=== PATIENT | male | born 1950 | race Caucasian/White ===

== ENCOUNTER 2023-11-07 09:12 | Outpatient (RCR) | payer OTHER, SELFPAY ==
[2023-10-16 07:11] LABS: Hematocrit 22.6 % (39.0-52.0); Hemoglobin 7.4 g/dL (13.0-18.0); Mean Corp Hgb Conc. 32.7 g/dL (33.0-37.0); Mean Corpuscular Hgb 32.3 pg (27.0-31.0); Mean Corpuscular Volume 98.7 fL (80.0-94.0); Mean Platelet Volume 11.3 fL (7.4-10.4); Nucleated Red Blood Cells % 0 % (-); Platelet Count 602 10^3/uL (130-400); Red Blood Cell Count 2.29 10^6/uL (4.70-6.10); Red Cell Dist. Width 25.5 % (11.5-14.5)
[2023-10-16 08:18] LABS: Absolute Neutrophils -Man Diff 16.3 10^3/uL (1.4-6.5); Atypical Lymphocytes 1 %; Band Neutrophils 9 % (0-3); Eosinophils 1 % (0-6); Lymphocytes 8 % (20-51); Metamyelocytes 4 % (-); Monocytes 7 % (2-9); Segmented Neutrophils 62 % (42-75)
[2023-10-16 08:19] LABS: Myelocytes 8 % (-)
[2023-10-16 08:23] LABS: Normal RBC Morphology No; Platelets Checked YES
[2023-10-16 08:25] LABS: Total Cells Counted 100
[2023-10-17 08:59] VITALS: BP 141/60
[2023-10-17 09:21] VITALS: BP 128/57
[2023-10-17 11:01] VITALS: BP 134/60
[2023-10-17 11:15] VITALS: BP 134/60
[2023-10-17 11:33] VITALS: BP 126/58
[2023-10-17 13:36] VITALS: BP 165/82
[2023-11-07 07:13] LABS: Hematocrit 24.8 % (39.0-52.0); Mean Corp Hgb Conc. 32.3 g/dL (33.0-37.0); Mean Corpuscular Hgb 31.7 pg (27.0-31.0); Mean Corpuscular Volume 98.4 fL (80.0-94.0); Mean Platelet Volume 11.2 fL (7.4-10.4); Nucleated Red Blood Cells % 0 % (-); Platelet Count 777 10^3/uL (130-400); Red Blood Cell Count 2.52 10^6/uL (4.70-6.10); Red Cell Dist. Width 24.4 % (11.5-14.5); White Blood Cell Count 31.1 10^3/uL (4.8-10.8)
[2023-11-07 07:55] LABS: Absolute Neutrophils -Man Diff 21.7 10^3/uL (1.4-6.5); Band Neutrophils 9 % (0-3); Blasts 1 % (-); Lymphocytes 4 % (20-51); Metamyelocytes 4 % (-); Monocytes 6 % (2-9); Myelocytes 15 % (-); Segmented Neutrophils 61 % (42-75)
[2023-11-07 07:56] LABS: Anisocytosis 1+; Macrocytosis 1+; Normal RBC Morphology No; Platelets Checked Yes
[2023-11-07 07:57] LABS: Hypochromasia 1+; Ovalocytes 1+; Polychromasia Slight
[2023-11-07 07:58] LABS: Total Cells Counted 100
[2023-11-07 09:49] VITALS: BP 113/63
[2023-11-07 10:07] VITALS: BP 123/66
[2023-11-07 12:11] VITALS: BP 121/59
== END 2023-11-14 23:59 | disposition home or self-care (01) ==
LOC: OID 09:12
PROVIDERS: Nurse Practitioner Adult Health; ATTENDING PHYSICIAN Internal Medicine Hematology & Oncology; FAMILY PHYSICIAN Family Medicine
DX: D47.3 Essential (hemorrhagic) thrombocythemia (principal); D75.81 Myelofibrosis; D50.9 Iron deficiency anemia, unspecified
CPT/HCPCS: 36415; 36430; 85025; 86850; 86900; 86901; 86920; P9016

== ENCOUNTER 2023-11-28 06:20 | Emergency (ER) | payer OTHER, SELFPAY ==
[2023-11-28] VITALS (13 sets, daily range): BP systolic 110–155; BP diastolic 64–98; BMI 25.4
[2023-11-28 07:10] LABS: Hematocrit 21.7 % (39.0-52.0); Hemoglobin 7.2 g/dL (13.0-18.0); Mean Corp Hgb Conc. 33.2 g/dL (33.0-37.0); Mean Corpuscular Hgb 32.1 pg (27.0-31.0); Mean Corpuscular Volume 96.9 fL (80.0-94.0); Mean Platelet Volume 11.3 fL (7.4-10.4); Nucleated Red Blood Cells % 0 % (-); Platelet Count 529 10^3/uL (130-400); Red Blood Cell Count 2.24 10^6/uL (4.70-6.10); White Blood Cell Count 18.6 10^3/uL (4.8-10.8)
[2023-11-28 07:26] LABS: ALT (SGPT) 30 U/L (0-50); AST (SGOT) 21 U/L (17-59); Alkaline Phosphatase 107 U/L (38-126); Blood Urea Nitrogen 34 mg/dl (9-20); Calcium 9.2 mg/dl (8.4-10.2); Carbon Dioxide 26 mmol/L (22-30); Chloride 105 mmol/L (98-107); Glucose 159 mg/dl (70-99); Potassium 4.7 mmol/L (3.5-5.1); Sodium 135 mmol/L (135-145); Total Bilirubin 0.5 mg/dl (0.2-1.3); Total Protein 7.4 g/dl (6.3-8.2); eGFR 45.21
--- NOTE | 2023-11-28 07:26 | ED.GENMED ---
History of Present Illness
General
Chief Complaint: Abnormal Lab Value
Source: patient and records
Exam Limitations: none
Time Seen by Provider: 11/28/23 06:43
Nursing documentation reviewed up to this point in time: agreed with
Travel History
Have you had any contact with someone who has COVID-19?: No
Do you have any symptoms of coronavirus? Fever > 100 degrees, chills, cough, shortness of breath, sore throat, loss of taste or smell, muscle aches, or headache?: No
History of Present Illness
History of Present Illness:
72-year-old male with a past medical history of hypertension, hyperlipidemia, diabetes, myelofibrosis and thrombocythemia who presents to the emergency department for evaluation of anemia. Patient has myelofibrosis and follows with
hematology/oncology through Dr. Diaz here locally but has been receiving most of his care through [facility] in [place]. He has been transfusion dependent for chronic anemia and has been getting transfusions about every 3 weeks. Fortunately
he is not very symptomatic from his anemia and he is quite active, plays tennis twice a week. He says that he had blood work drawn Saturday, Saturday, Saturday this week and his hemoglobin has been trending downwards; he is not due to have repeat
blood work until next week and there was concern that hemoglobin would drop below 7 if he were to wait until next week for transfusion and so he was referred to the emergency room for assessment. He has not had any shortness of breath, dizziness,
chest pain or exercise intolerance. He has not had any bleeding including blood in his stools, nosebleeding.
Past History
Past History
ED Past Medical History: Cancer, HTN, Hypercholesterolemia and NIDDM
ED Past Surgical History: None
Social History
Tobacco: Former smoker
Alcohol: None
Personal:
Living: with family
Review of Systems
Review of Systems
All Other Systems: ROS reviewed and negative except as documented in HPI and ROS
Constitutional: Denies fever, fatigue or chills
EENT: Denies sore throat or runny nose
Respiratory: Denies cough or trouble breathing
Cardiac: Denies chest pain, palpitations or syncope
ABD/GI: Denies abdominal pain, nausea, vomiting, bloody stools or black stools
: Denies flank pain
Musculoskeletal: Denies neck pain or back pain
Neurological: Denies dizzy or headache
Phy Exam
Physical Exam
Physical Exam:
General: Awake, alert, oriented x3; no acute distress
Head: Normocephalic, atraumatic
Eyes: Pale conjunctiva, pupils equal round reactive to light bilaterally
Throat: Airway intact, handling secretions
Neck: Trachea midline, supple without meningismus
Lungs: Clear to auscultation bilaterally, no wheezing, rales, rhonchi
Heart: Regular rate and rhythm, no murmurs, gallops, or rubs
Abd: Soft, non distended, nontender
Rectal: Patient declined
Neuro: No gross deficits
Skin: Slightly pale, no rash
Extremities: Warm and well-perfused
Scores
Heart Failure Risk
Heart Failure Risk Score: Not Applicable
Heart Score for Chest Pain Patients
STEMI patient?: Not applicable
Withdrawal Assessment of Alcohol
Withdrawal Assessment Completed?: Not applicable
Course
Orders/Labs/Results
Orders:
Orders
11/28/23 07:04
Type+Screen Urgent
Complete Blood Count/With Diff Urgent
Comprehensive Metabolic Panel Urgent
Manual Differential Urgent
11/28/23 07:25
* Blood Bank Products Urgent
Blood Bank Products: *Packed RBC Leuko(PRBC's)
Quantity: 2
Transfuse Today: Yes
Reason: Anemia
Abnormal Lab Results
11/28/23
07:04
WBC 18.6 H 10^3/uL
(4.8-10.8)
RBC 2.24 L 10^6/uL
(4.70-6.10)
Hgb 7.2 L g/dL
(13.0-18.0)
Hct 21.7 L %
(39.0-52.0)
MCV 96.9 H fL
(80.0-94.0)
MCH 32.1 H pg
(27.0-31.0)
RDW 25.0 H %
(11.5-14.5)
Plt Count 529 H 10^3/uL
(130-400)
MPV 11.3 H fL
(7.4-10.4)
11/28/23 07:04
Vital Signs
Initial and Last Documented VS:
Initial Vital Signs
Temp Pulse Resp BP Pulse Ox
36.9 C 69 16 155/98 98
11/28/23 06:25 11/28/23 06:25 11/28/23 06:25 11/28/23 06:25 11/28/23 06:25
Last Documented Vital Signs
Temp Pulse Resp BP Pulse Ox
36.9 C 69 16 155/98 98
11/28/23 06:25 11/28/23 06:25 11/28/23 06:25 11/28/23 06:25 11/28/23 06:25
MDM/Problems Addressed
Differential Diagnosis Includes:
Anemia
MDM/Problems Addressed:
72-year-old male with myelofibrosis and transfusion dependent chronic anemia currently receiving care through [facility] presents for anemia on outpatient labs. Fortunately he is asymptomatic. He is mildly hypertensive but has otherwise
normal vitals here. Exam as above. He denies any GI bleeding, declined rectal exam here. IV placed labs sent off including a CBC and a CMP�hemoglobin 7.2 this morning. Will transfuse 2 units of PRBCs and monitor here in the emergency room, plan
likely for discharge pending transfusion.
Chronic conditions affecting care:
Myelofibrosis
Acute Exacerbation and/or Progression of Chronic Illness:
Acutely hypertensive
Acute Exacerbation and/or Progression of Chronic Illness: HTN
*Pulse Oximetry
Patient hypoxic: no
*Critical Care Note
Total Time (30-74mins, 75-104mins- exclusive of procedures): Not Applicable
Data Reviewed
Review of Other/Old Records Reveals: Labs and Records
Source: patient and records
ED Attending Note
-
Portions of this chart may have been created with voice recognition software.� Occasional wrong word or��sound alike� substitutions may have occurred due to the inherent limitations of voice recognition software.
Discharge Plan
Departure
Discharge Problem:
Anemia
Instructions: Normocytic Normochromic Anemia (DC)
Prescriptions:
No Action
atorvastatin 40 MG tablet
40 mg PO DAILY
aspirin [Adult Aspirin Regimen] 81 MG tablet,delayed release (DR/EC)
81 mg PO DAILY
metformin 1,000 MG tablet
1,000 mg PO BID@0800,1700
Centrum Silver Men 1 EACH tablet
1 ea PO DAILY
amlodipine 2.5 mg Tablet
2.5 mg PO DAILY
omega 7-bef-fos-fish oil [Fish Oil] 1,000 mg (120 mg-180 mg) Capsule
1 cap PO DAILY
Referrals:
Reed Tam MD [Family Provider] - Call in 1-3 days for appt
Dwain Diaz MD [Active] - Call in 1-3 days for appt
Activity Restrictions/Additional Instructions:
Thank you for visiting the Emergency Department at [facility].
1. Please schedule a follow up appointment as directed. Call first thing tomorrow morning to make an appointment.
2. If indicated, please take your medications as instructed and indicated on discharge paperwork.
3. If any of your symptoms do not improve, or persist, or become more severe within 6-12 hours, please return to the emergency department for further care.
4. Please return to the emergency department if you develop a headache, neck pain/stiffness, fever greater than 100.4F, chest pain, shortness of breath, persistent nausea, vomiting, slurred speech, difficulty walking, numbness/tingling, weakness,
signs of infection or any other symptoms that are worrisome to you.
Please call [phone] if you have any questions.
Interventions
Interventions:
*Risk Screen - Suicide Last Done: 11/28/23 06:25
*General Assessment Last Done: 11/28/23 07:21
*Neglect/Abuse Screening Last Done: 11/28/23 06:25
ED- Fall Risk Assessment Last Done: 11/28/23 07:21
*ED COVID-19 Vaccine History Last Done: 11/28/23 06:25
[2023-11-28 08:03] LABS: Absolute Neutrophils -Man Diff 12.6 10^3/uL (1.4-6.5); Band Neutrophils 6 % (0-3); Eosinophils 6 % (0-6); Lymphocytes 11 % (20-51); Metamyelocytes 9 % (-); Monocytes 6 % (2-9); Segmented Neutrophils 62 % (42-75)
[2023-11-28 08:04] LABS: Other Cells 1; Platelets Checked Yes
[2023-11-28 08:09] LABS: Anisocytosis 2+; Hypochromasia Slight; Polychromasia Slight
[2023-11-28 08:10] LABS: Normal RBC Morphology No; Ovalocytes Slight; Poikilocytosis 1+; Total Cells Counted 100
--- NOTE | 2023-11-28 09:23 | EDRN ---
Patient receiving 1st unit of PRBC. Explained to patient signs and symptoms of a transfusion reaction. Verbalized understanding.
--- NOTE | 2023-11-28 09:40 | EDRN ---
Patient tolerating PRBC. Asymptomatic of a transfusion reaction.
--- NOTE | 2023-11-28 11:30 | EDRN ---
Patient tolerated 1st unit of PRBC. Asymptomatic of a transfusion reaction.
--- NOTE | 2023-11-28 11:45 | EDRN ---
Patient receiving 2nd unit of PRBC.
--- NOTE | 2023-11-28 13:30 | EDRN ---
Patient tolerated 2nd unit of PRBC. Asymptomatic of a transfusion reaction. Reviewed discharge instructions with patient. Verbalized understanding.
== END 2023-11-28 13:40 | disposition home or self-care (01) ==
LOC: EMR 06:20
PROVIDERS: EMERGENCY PHYSICIAN Emergency Medicine; FAMILY PHYSICIAN Family Medicine
DX: D64.9 Anemia, unspecified (principal); D75.81 Myelofibrosis; I10 Essential (primary) hypertension; Z87.891 Personal history of nicotine dependence
CPT/HCPCS: 99285; 36430; 80053; 85025; 86850; 86900; 86901; 86920; P9016

== ENCOUNTER 2023-12-26 10:08 | Outpatient (RCR) | payer OTHER, SELFPAY ==
[2023-12-25 07:36] LABS: Hematocrit 21.2 % (39.0-52.0); Hemoglobin 6.9 g/dL (13.0-18.0); Mean Corp Hgb Conc. 32.5 g/dL (33.0-37.0); Mean Corpuscular Hgb 31.4 pg (27.0-31.0); Mean Corpuscular Volume 96.4 fL (80.0-94.0); Mean Platelet Volume 11.4 fL (7.4-10.4); Nucleated Red Blood Cells % 0 % (-); Platelet Count 602 10^3/uL (130-400); Red Cell Dist. Width 24.6 % (11.5-14.5); White Blood Cell Count 19.9 10^3/uL (4.8-10.8)
[2023-12-25 08:37] LABS: Absolute Neutrophils -Man Diff 14.9 10^3/uL (1.4-6.5); Band Neutrophils 14 % (0-3); Eosinophils 1 % (0-6); Lymphocytes 4 % (20-51); Monocytes 5 % (2-9); Segmented Neutrophils 61 % (42-75)
[2023-12-25 08:38] LABS: Metamyelocytes 7 % (-); Myelocytes 8 % (-); Normal RBC Morphology No; Platelets Checked Yes
[2023-12-25 08:39] LABS: Anisocytosis 2+
[2023-12-25 08:40] LABS: Macrocytosis 1+; Microcytosis 1+
[2023-12-25 08:41] LABS: Ovalocytes 1+; Polychromasia 1+
[2023-12-25 08:42] LABS: Acanthocytes 1+; Total Cells Counted 100
[2023-12-26 10:59] VITALS: BP 137/74
[2023-12-26 11:16] VITALS: BP 121/58
[2023-12-26 12:52] VITALS: BP 116/62
[2023-12-26 13:00] VITALS: BP 116/62
[2023-12-26 13:17] VITALS: BP 116/64
[2023-12-26 15:01] VITALS: BP 130/74
== END 2024-01-14 11:28 | disposition home or self-care (01) ==
LOC: OID 10:08
PROVIDERS: ATTENDING PHYSICIAN Internal Medicine Hematology & Oncology; FAMILY PHYSICIAN Family Medicine
DX: D47.3 Essential (hemorrhagic) thrombocythemia (principal); D75.81 Myelofibrosis; D50.9 Iron deficiency anemia, unspecified
CPT/HCPCS: 36415; 36430; 85025; 86850; 86900; 86901; 86920; P9016

== ENCOUNTER 2024-01-16 09:16 | Outpatient (RCR) | payer OTHER, SELFPAY ==
[2024-01-15 07:35] LABS: Hematocrit 22.9 % (39.0-52.0); Hemoglobin 7.4 g/dL (13.0-18.0); Mean Corp Hgb Conc. 32.3 g/dL (33.0-37.0); Mean Corpuscular Hgb 31.4 pg (27.0-31.0); Mean Platelet Volume 11.5 fL (7.4-10.4); Nucleated Red Blood Cells % 0 % (-); Platelet Count 538 10^3/uL (130-400); Red Blood Cell Count 2.36 10^6/uL (4.70-6.10); Red Cell Dist. Width 23.2 % (11.5-14.5); White Blood Cell Count 19.6 10^3/uL (4.8-10.8)
[2024-01-15 11:24] LABS: Absolute Neutrophils -Man Diff 14.7 10^3/uL (1.4-6.5); Band Neutrophils 5 % (0-3); Lymphocytes 8 % (20-51); Monocytes 5 % (2-9); Segmented Neutrophils 70 % (42-75)
[2024-01-15 11:25] LABS: Blasts 3 % (-); Eosinophils 1 % (0-6); Metamyelocytes 2 % (-); Myelocytes 6 % (-)
[2024-01-15 11:26] LABS: Anisocytosis 2+; Macrocytosis 1+; Normal RBC Morphology No; Platelets Checked Yes; Polychromasia 1+
[2024-01-15 11:27] LABS: Acanthocytes 1+; Ovalocytes 1+; Total Cells Counted 100
[2024-01-16 09:51] VITALS: BP 111/53
[2024-01-16 10:10] VITALS: BP 108/46
[2024-01-16 12:05] VITALS: BP 119/57
[2024-01-16 12:27] VITALS: BP 119/57
[2024-01-16 12:44] VITALS: BP 138/66
[2024-01-16 14:31] VITALS: BP 144/69
== END 2024-02-13 15:39 | disposition home or self-care (01) ==
LOC: OID 09:16
PROVIDERS: ATTENDING PHYSICIAN Internal Medicine Hematology & Oncology; FAMILY PHYSICIAN Family Medicine
DX: D47.3 Essential (hemorrhagic) thrombocythemia (principal); D75.81 Myelofibrosis; D50.9 Iron deficiency anemia, unspecified
CPT/HCPCS: 36415; 36430; 85025; 86850; 86900; 86901; 86920; P9016

== ENCOUNTER 2024-03-09 08:23 | Outpatient (RCR) | payer OTHER, SELFPAY ==
[2024-02-19 07:36] LABS: Hematocrit 18.4 % (39.0-52.0); Hemoglobin 6.1 g/dL (13.0-18.0); Mean Corp Hgb Conc. 33.2 g/dL (33.0-37.0); Mean Corpuscular Hgb 30.8 pg (27.0-31.0); Mean Corpuscular Volume 92.9 fL (80.0-94.0); Mean Platelet Volume 11.5 fL (7.4-10.4); Platelet Count 519 10^3/uL (130-400); Red Blood Cell Count 1.98 10^6/uL (4.70-6.10); Red Cell Dist. Width 22.5 % (11.5-14.5); White Blood Cell Count 23.7 10^3/uL (4.8-10.8)
[2024-02-19 08:54] LABS: Anisocytosis 2+; Band Neutrophils 17 % (0-3); Lymphocytes 7 % (20-51); Metamyelocytes 11 % (-); Monocytes 2 % (2-9); Myelocytes 3 % (-); Normal RBC Morphology No; Platelets Checked Yes; Segmented Neutrophils 59 % (42-75)
[2024-02-19 08:55] LABS: Ovalocytes FEW; Spherocytes 1+; Total Cells Counted 100
[2024-02-20 09:04] VITALS: BP 121/58
[2024-02-20 09:31] VITALS: BP 124/57
[2024-02-20 11:21] VITALS: BP 127/58
[2024-02-20 11:35] VITALS: BP 127/58
[2024-02-20 11:53] VITALS: BP 128/58
[2024-02-20 13:56] VITALS: BP 128/66
[2024-03-09 08:40] VITALS: BP 125/51
[2024-03-09 09:11] VITALS: BP 125/51
[2024-03-09 09:29] VITALS: BP 104/46
[2024-03-09 11:10] VITALS: BP 137/63
== END 2024-03-15 23:59 | disposition home or self-care (01) ==
LOC: OID 08:23
PROVIDERS: ATTENDING PHYSICIAN Internal Medicine Hematology & Oncology; FAMILY PHYSICIAN Family Medicine
DX: D47.3 Essential (hemorrhagic) thrombocythemia (principal); D75.81 Myelofibrosis; D50.9 Iron deficiency anemia, unspecified
CPT/HCPCS: 36415; 36430; 85025; 86850; 86900; 86901; 86920; P9016

== ENCOUNTER 2024-04-02 09:29 | Emergency (ER) | payer OTHER, SELFPAY ==
[2024-04-02 09:35] VITALS: BP 142/65
--- NOTE | 2024-04-02 09:48 | ED.GENMED ---
History of Present Illness
General
Chief Complaint: Abnormal Lab Value
Source: patient and records
Exam Limitations: none
Time Seen by Provider: 04/02/24 09:38
Nursing documentation reviewed up to this point in time: agreed with
History of Present Illness
History of Present Illness:
73-year-old male presents emergency department due to anemia. He got his blood drawn recently and it was 7.3. He denies any symptoms. He states he does not ever have symptoms from his anemia. He denies any bleeding. He states he did not want to
wait for the OID.
Past History
Past History
ED Past Medical History: Cancer, HTN, Hypercholesterolemia and NIDDM
ED Past Surgical History: Orthopedic (Right knee arthroscopy) and Other (Hernia repair 1964)
Social History
Tobacco: Former smoker
Alcohol: None
Personal:
Living: with family
Review of Systems
Review of Systems
Allergies reviewed?: Yes
All Other Systems: Not applicable
Constitutional: Reports no symptoms
EENT: Reports no symptoms
Respiratory: Reports no symptoms
Cardiac: Reports no symptoms
ABD/GI: Reports no symptoms
: Reports no symptoms
Musculoskeletal: Reports no symptoms
Skin: Reports no symptoms
Neurological: Reports no symptoms
Endocrine: Reports no symptoms
Hematologic/Lymphatic: Reports no symptoms
Psychiatric: Reports no symptoms
Phy Exam
Physical Exam
Physical Exam:
Physical Exam
General: no apparent distress, not acutely ill
Neck: supple. no meningeal signs. normal posterior pharynx
Heart: s1/s2 regular rate and rhythm, no murmur. equal radial
pulses.
HEENT: Pupils equal round reactive to light, EOMI
Lungs: no acute respiratory distress. clear bilaterally
Abdomen: normal bowel sounds. not tender. no CVAT
Neuro: alert and oriented. no focal neurological deficits cranial nerves II through XII intact
Skin: no rash
Psychiatric: well kept. interactive and cooperative
Extremities: no edema. no calf tenderness. negative homans. good distal pulses
Course
Vital Signs
Initial and Last Documented VS:
Initial Vital Signs
Temp Pulse Resp BP Pulse Ox
98.9 F 71 18 142/65 100
04/02/24 09:35 04/02/24 09:35 04/02/24 09:35 04/02/24 09:35 04/02/24 09:35
Last Documented Vital Signs
Temp Pulse Resp BP Pulse Ox
98.9 F 71 18 142/65 100
04/02/24 09:35 04/02/24 09:35 04/02/24 09:35 04/02/24 09:35 04/02/24 09:35
MDM/Problems Addressed
Differential Diagnosis Includes:
Fibrosis, anemia
MDM/Problems Addressed:
73-year-old male with anemia. Asymptomatic. No indication for emergent transfusion in ED. Stable for discharge and will go to outpatient infusion today for nonemergent transfusion.
Chronic conditions affecting care: Other (Myelofibrosis)
Acute Exacerbation and/or Progression of Chronic Illness: Other (Myelofibrosis)
*Pulse Oximetry
Patient hypoxic: no
*Critical Care Note
Total Time (30-74mins, 75-104mins- exclusive of procedures): Not Applicable
Data Reviewed
Review of Other/Old Records Reveals: Labs
Source: records (Prior hemoglobin 6.7 on 03/21/2024)
Patient Management
Social determinants of health affecting care: Living situation
Escalation/DeEscalation of care consider admission/obs:
Admit not indicated
ED Attending Note
-
Portions of this chart may have been created with voice recognition software.� Occasional wrong word or��sound alike� substitutions may have occurred due to the inherent limitations of voice recognition software.
Discharge Plan
Departure
Patient Disposition: Home (Routine Discharge)
Date of Disposition: 04/02/24
Time of Disposition: 09:49
Patient with high blood pressure during this ER visit?: Yes
Condition: Good
Discharge Problem:
Anemia
Instructions: BLOOD PRESSURE
Prescriptions:
No Action
atorvastatin 40 MG tablet
40 mg PO DAILY
amlodipine 2.5 mg Tablet
2.5 mg PO DAILY
Centrum Silver Tablet
1 tab PO DAILY
Fish Oil 500 mg Capsule
500 mg PO DAILY
metformin 500 mg Tablet
500 mg PO BID
aspirin 81 mg Tablet,Delayed Release (Dr/Ec)
81 mg PO DAILY
Activity Restrictions/Additional Instructions:
Go to Outpatient infusion department for further care today.
Interventions
Interventions:
*Risk Screen - Suicide Last Done: 04/02/24 09:35
*General Assessment Last Done: 04/02/24 09:35
*Neglect/Abuse Screening Last Done: 04/02/24 09:35
ED- Fall Risk Assessment Last Done: 04/02/24 10:00
*ED COVID-19 Vaccine History Last Done: 04/02/24 10:00
*Nursing Disposition Last Done: 04/02/24 10:00
Discharge Date and Time
Print Language: CAMEROONIAN
[2024-04-02 09:51] VITALS: BMI 23.2
== END 2024-04-02 10:01 | disposition home or self-care (01) ==
LOC: EMR 09:29
PROVIDERS: EMERGENCY PHYSICIAN Emergency Medicine; FAMILY PHYSICIAN Family Medicine
DX: D64.9 Anemia, unspecified (principal); I10 Essential (primary) hypertension; E78.00 Pure hypercholesterolemia, unspecified; E11.9 Type 2 diabetes mellitus without complications; D75.81 Myelofibrosis; Z87.891 Personal history of nicotine dependence
CPT/HCPCS: 99282

== ENCOUNTER 2024-04-02 10:06 | Outpatient (RCR) | payer OTHER, SELFPAY ==
[2024-03-21 08:23] LABS: % Basophils 1.4 % (0-2); % Eosinophils 1.7 % (0-6); % Immature Granulocytes 19.7 % (0-0.5); % Lymphocytes 10.3 % (20.5-51.1); % Monocytes 7.4 % (1.7-9.3); % Neutrophils 59.5 % (42.2-75.2); Absolute Basophils 0.3 10^3/uL (0-0.2); Absolute Eosinophils 0.4 10^3/uL (0-0.7); Absolute Immature Granulocytes 4.6 10^3/uL (0-0.05); Absolute Lymphocytes 2.4 10^3/uL (1.2-3.4); Absolute Monocytes 1.8 10^3/uL (0.1-0.6); Hematocrit 19.7 % (39.0-52.0); Hemoglobin 6.7 g/dL (13.0-18.0); Mean Corpuscular Hgb 31.6 pg (27.0-31.0); Mean Corpuscular Volume 92.9 fL (80.0-94.0); Mean Platelet Volume 11.8 fL (7.4-10.4); Nucleated Red Blood Cells % 0 % (-); Platelet Count 493 10^3/uL (130-400); Red Blood Cell Count 2.12 10^6/uL (4.70-6.10); Red Cell Dist. Width 20.3 % (11.5-14.5); White Blood Cell Count 23.5 10^3/uL (4.8-10.8)
[2024-03-21 09:04] LABS: Absolute Neutrophils -Man Diff 18.5 10^3/uL (1.4-6.5); Anisocytosis 2+; Band Neutrophils 16 % (0-3); Eosinophils 1 % (0-6); Hypochromasia 1+; Lymphocytes 8 % (20-51); Metamyelocytes 4 % (-); Monocytes 3 % (2-9); Myelocytes 5 % (-); Normal RBC Morphology No; Platelets Checked Yes; Polychromasia 1+; Segmented Neutrophils 63 % (42-75)
[2024-03-21 09:05] LABS: Acanthocytes FEW; Ovalocytes 1+; Total Cells Counted 100
[2024-03-23 09:07] VITALS: BP 129/60
[2024-03-23 09:25] VITALS: BP 113/58
[2024-03-23 11:08] VITALS: BP 132/58
[2024-03-23 11:11] VITALS: BP 132/58
[2024-03-23 11:28] VITALS: BP 121/59
[2024-03-23 13:24] VITALS: BP 122/63
[2024-04-02] VITALS (8 sets, daily range): BP systolic 111–153; BP diastolic 62–86
--- NOTE | 2024-04-02 15:49 | W.PN.UPDATE ---
Update Note
- Progress Note Update
04/02/24 1425
Pt here in OID for 2 units of PRBC. Patient requesting information on low potassium diet as he was advised to follow a low potassium diet per nephrology and recently found ensure he has been drinking daily has over 370mg potassium. Concerned about
weight loss so has been supplementing. Provided educational materials/charts to help with food prep and shopping for low potassium diet and some suggestions for protein shakes including clear ensure. He will read over the materials. A nutrition
evaluation has been placed as well and nutrition will contact him to schedule an appt. He has my contact information and knows to call for any questions or concerns going forward. He will follow up with nephrology next week. All questions
answered to his satisfaction and he thanked me for the info.
== END 2024-04-15 23:59 | disposition home or self-care (01) ==
LOC: OID 10:06
PROVIDERS: ATTENDING PHYSICIAN Internal Medicine Hematology & Oncology; FAMILY PHYSICIAN Family Medicine
DX: D47.3 Essential (hemorrhagic) thrombocythemia (principal); D75.81 Myelofibrosis; D50.9 Iron deficiency anemia, unspecified
CPT/HCPCS: 36415; 36430; 85025; 86850; 86900; 86901; 86920; P9016

== ENCOUNTER → 2024-04-16 10:04 | Outpatient (REF) | payer OTHER, SELFPAY | LOC: HWRAD 10:04 | PROVIDERS: ATTENDING PHYSICIAN Student in an Organized Health Care Education/Training Program; FAMILY PHYSICIAN Family Medicine | DX: N17.9 Acute kidney failure, unspecified (principal) | CPT/HCPCS: 76770 ==

== ENCOUNTER 2024-05-07 07:44 | Outpatient (RCR) | payer OTHER, SELFPAY ==
[2024-04-22 08:28] LABS: Mean Corp Hgb Conc. 33.3 g/dL (33.0-37.0); Mean Corpuscular Hgb 30.7 pg (27.0-31.0); Mean Corpuscular Volume 92.1 fL (80.0-94.0); Mean Platelet Volume 11.6 fL (7.4-10.4); Platelet Count 433 10^3/uL (130-400); Red Blood Cell Count 2.28 10^6/uL (4.70-6.10); Red Cell Dist. Width 17.7 % (11.5-14.5); White Blood Cell Count 21.4 10^3/uL (4.8-10.8)
[2024-04-22 10:18] LABS: Absolute Neutrophils -Man Diff 13.9 10^3/uL (1.4-6.5); Anisocytosis 1+; Atypical Lymphocytes 1 %; Band Neutrophils 21 % (0-3); Hypochromasia 1+; Lymphocytes 10 % (20-51); Metamyelocytes 14 % (-); Monocytes 4 % (2-9); Myelocytes 6 % (-); Normal RBC Morphology No; Platelets Checked Yes; Polychromasia 1+; Segmented Neutrophils 44 % (42-75)
[2024-04-22 10:19] LABS: Ovalocytes 1+; Total Cells Counted 100
[2024-04-23] VITALS (7 sets, daily range): BP systolic 100–133; BP diastolic 49–69
[2024-05-07] VITALS (7 sets, daily range): BP systolic 97–115; BP diastolic 45–58
== END 2024-05-16 23:59 | disposition home or self-care (01) ==
LOC: OID 07:44
PROVIDERS: ATTENDING PHYSICIAN Internal Medicine Hematology & Oncology; FAMILY PHYSICIAN Family Medicine
DX: D47.3 Essential (hemorrhagic) thrombocythemia (principal); D75.81 Myelofibrosis; D50.9 Iron deficiency anemia, unspecified; R16.1 Splenomegaly, not elsewhere classified
CPT/HCPCS: 36415; 36430; 85025; 86850; 86900; 86901; 86920; P9016

== ENCOUNTER → 2024-05-26 06:18 | Outpatient (REF) | payer OTHER, SELFPAY | LOC: REG 06:18 | PROVIDERS: ATTENDING PHYSICIAN Internal Medicine Hematology & Oncology; FAMILY PHYSICIAN Family Medicine | DX: D47.3 Essential (hemorrhagic) thrombocythemia (principal); D50.9 Iron deficiency anemia, unspecified; D75.81 Myelofibrosis; R16.1 Splenomegaly, not elsewhere classified | CPT/HCPCS: 36415; 85025; 86850; 86900; 86901; 86920 ==

== ENCOUNTER 2024-05-28 09:12 | Outpatient (RCR) | payer OTHER, SELFPAY ==
[2024-05-26 07:33] LABS: Hematocrit 24.1 % (39.0-52.0); Hemoglobin 7.9 g/dL (13.0-18.0); Mean Corp Hgb Conc. 32.8 g/dL (33.0-37.0); Mean Corpuscular Hgb 29.9 pg (27.0-31.0); Mean Corpuscular Volume 91.3 fL (80.0-94.0); Mean Platelet Volume 11.6 fL (7.4-10.4); Platelet Count 440 10^3/uL (130-400); Red Blood Cell Count 2.64 10^6/uL (4.70-6.10); Red Cell Dist. Width 16.2 % (11.5-14.5); White Blood Cell Count 25.1 10^3/uL (4.8-10.8)
[2024-05-26 09:09] LABS: Absolute Neutrophils -Man Diff 19.5 10^3/uL (1.4-6.5); Band Neutrophils 11 % (0-3); Lymphocytes 6 % (20-51); Monocytes 9 % (2-9); Segmented Neutrophils 67 % (42-75)
[2024-05-26 09:10] LABS: Eosinophils 2 % (0-6); Metamyelocytes 1 % (-); Myelocytes 4 % (-); Normal RBC Morphology Yes; Platelets Checked Yes; Total Cells Counted 100
[2024-05-28] VITALS (7 sets, daily range): BP systolic 107–154; BP diastolic 57–78
== END 2024-06-15 23:59 | disposition home or self-care (01) ==
LOC: OID 09:12
PROVIDERS: ATTENDING PHYSICIAN Internal Medicine Hematology & Oncology; FAMILY PHYSICIAN Family Medicine
DX: D47.3 Essential (hemorrhagic) thrombocythemia (principal); D75.81 Myelofibrosis; D50.9 Iron deficiency anemia, unspecified
CPT/HCPCS: 36415; 36430; 85025; 86850; 86900; 86901; 86920; P9016

== ENCOUNTER 2024-07-09 08:28 | Outpatient (RCR) | payer OTHER, SELFPAY ==
[2024-06-20 08:27] LABS: Mean Corp Hgb Conc. 33.3 g/dL (33.0-37.0); Mean Corpuscular Hgb 29.3 pg (27.0-31.0); Mean Corpuscular Volume 87.9 fL (80.0-94.0); Mean Platelet Volume 11.8 fL (7.4-10.4); Platelet Count 354 10^3/uL (130-400); Red Blood Cell Count 2.39 10^6/uL (4.70-6.10); Red Cell Dist. Width 15.7 % (11.5-14.5); White Blood Cell Count 22.3 10^3/uL (4.8-10.8)
[2024-06-20 10:32] LABS: Absolute Neutrophils -Man Diff 15.1 10^3/uL (1.4-6.5); Band Neutrophils 13 % (0-3); Eosinophils 1 % (0-6); Lymphocytes 15 % (20-51); Monocytes 2 % (2-9); Segmented Neutrophils 55 % (42-75)
[2024-06-20 10:33] LABS: Atypical Lymphocytes 1 %; Metamyelocytes 4 % (-); Myelocytes 8 % (-)
[2024-06-20 10:34] LABS: Platelets Checked YES
[2024-06-20 10:35] LABS: Normal RBC Morphology Yes
[2024-06-20 10:36] LABS: Total Cells Counted 100
[2024-06-22 10:32] VITALS: BP 110/50
[2024-06-22 10:58] VITALS: BP 105/49
[2024-06-22 12:26] VITALS: BP 120/47
[2024-06-22 12:48] VITALS: BP 118/63
[2024-06-22 14:59] VITALS: BP 150/70
[2024-07-09 08:53] VITALS: BP 138/71
[2024-07-09 09:13] VITALS: BP 134/65
[2024-07-09 10:41] VITALS: BP 131/63
[2024-07-09 10:43] VITALS: BP 131/63
[2024-07-09 11:00] VITALS: BP 153/64
[2024-07-09 12:56] VITALS: BP 142/64
== END 2024-07-15 15:06 | disposition home or self-care (01) ==
LOC: OID 08:28
PROVIDERS: ATTENDING PHYSICIAN Internal Medicine Hematology & Oncology; FAMILY PHYSICIAN Family Medicine
DX: D47.3 Essential (hemorrhagic) thrombocythemia (principal); D75.81 Myelofibrosis; D50.9 Iron deficiency anemia, unspecified
CPT/HCPCS: 36415; 36430; 85025; 86850; 86900; 86901; 86920; P9016

== ENCOUNTER 2024-08-10 07:49 | Outpatient (RCR) | payer OTHER, SELFPAY ==
[2024-07-18 08:08] LABS: Hematocrit 22.4 % (39.0-52.0); Hemoglobin 7.4 g/dL (13.0-18.0); Mean Corpuscular Hgb 28.8 pg (27.0-31.0); Mean Corpuscular Volume 87.2 fL (80.0-94.0); Mean Platelet Volume 11.8 fL (7.4-10.4); Platelet Count 303 10^3/uL (130-400); Red Blood Cell Count 2.57 10^6/uL (4.70-6.10); Red Cell Dist. Width 15.8 % (11.5-14.5); White Blood Cell Count 23.9 10^3/uL (4.8-10.8)
[2024-07-18 08:39] LABS: Absolute Neutrophils -Man Diff 18.1 10^3/uL (1.4-6.5); Anisocytosis 1+; Band Neutrophils 9 % (0-3); Eosinophils 1 % (0-6); Hypochromasia 1+; Lymphocytes 9 % (20-51); Metamyelocytes 2 % (-); Monocytes 3 % (2-9); Myelocytes 9 % (-); Normal RBC Morphology No; Ovalocytes Slight; Platelets Checked Yes; Segmented Neutrophils 67 % (42-75); Total Cells Counted 100
[2024-07-20] VITALS (7 sets, daily range): BP systolic 110–126; BP diastolic 60–63
[2024-08-08 07:43] LABS: Hematocrit 21.2 % (39.0-52.0); Hemoglobin 7.1 g/dL (13.0-18.0); Mean Corp Hgb Conc. 33.5 g/dL (33.0-37.0); Mean Corpuscular Hgb 28.6 pg (27.0-31.0); Mean Corpuscular Volume 85.5 fL (80.0-94.0); Mean Platelet Volume 11.3 fL (7.4-10.4); Nucleated Red Blood Cells % 0 % (-); Platelet Count 323 10^3/uL (130-400); Red Blood Cell Count 2.48 10^6/uL (4.70-6.10); Red Cell Dist. Width 16.3 % (11.5-14.5)
[2024-08-08 08:56] LABS: Band Neutrophils 9 % (0-3); Eosinophils 1 % (0-6); Lymphocytes 6 % (20-51); Metamyelocytes 5 % (-); Monocytes 5 % (2-9); Myelocytes 15 % (-)
[2024-08-08 08:57] LABS: Absolute Neutrophils -Man Diff 17.6 10^3/uL (1.4-6.5); Segmented Neutrophils 59 % (42-75)
[2024-08-08 08:59] LABS: Anisocytosis Slight; Hypochromasia Slight; Normal RBC Morphology No; Ovalocytes Slight; Platelets Checked Yes; Total Cells Counted 100
[2024-08-10 08:22] VITALS: BP 124/52
[2024-08-10 08:44] VITALS: BP 114/52
[2024-08-10 10:07] VITALS: BP 108/43
[2024-08-10 10:19] VITALS: BP 108/43
[2024-08-10 10:36] VITALS: BP 105/48
[2024-08-10 12:09] VITALS: BP 135/63
== END 2024-08-11 09:57 | disposition home or self-care (01) ==
LOC: OID 07:49
PROVIDERS: ATTENDING PHYSICIAN Internal Medicine Hematology & Oncology; FAMILY PHYSICIAN Family Medicine
DX: D47.3 Essential (hemorrhagic) thrombocythemia (principal); D75.81 Myelofibrosis; D50.9 Iron deficiency anemia, unspecified
CPT/HCPCS: 36415; 36430; 85025; 86850; 86900; 86901; 86920; P9016

== ENCOUNTER 2024-09-14 07:42 | Outpatient (RCR) | payer OTHER, SELFPAY ==
[2024-08-27] VITALS (7 sets, daily range): BP systolic 115–142; BP diastolic 55–64
[2024-09-14] VITALS (7 sets, daily range): BP systolic 108–139; BP diastolic 55–68
[2024-09-14] MEDS: TYLENOL 650 MG PO (08:15)
== END 2024-09-15 14:43 | disposition home or self-care (01) ==
LOC: OID 07:42
PROVIDERS: ATTENDING PHYSICIAN Internal Medicine Hematology & Oncology
DX: D47.3 Essential (hemorrhagic) thrombocythemia (principal); D50.9 Iron deficiency anemia, unspecified; D75.81 Myelofibrosis; R16.1 Splenomegaly, not elsewhere classified
CPT/HCPCS: 36415; 36430; 86850; 86900; 86901; 86920; P9016

== ENCOUNTER 2024-10-01 07:43 | Outpatient (RCR) | payer OTHER, SELFPAY ==
[2024-10-01 08:19] VITALS: BP 141/66
[2024-10-01 08:37] VITALS: BP 131/58
[2024-10-01 10:31] VITALS: BP 130/72
[2024-10-01 10:38] VITALS: BP 130/72
[2024-10-01 10:55] VITALS: BP 123/64
[2024-10-01 13:01] VITALS: BP 149/73
== END 2024-10-16 23:59 | disposition home or self-care (01) ==
LOC: OID 07:43
PROVIDERS: ATTENDING PHYSICIAN Internal Medicine Hematology & Oncology
DX: D47.3 Essential (hemorrhagic) thrombocythemia (principal); D50.9 Iron deficiency anemia, unspecified; D75.81 Myelofibrosis; R16.1 Splenomegaly, not elsewhere classified
CPT/HCPCS: 36415; 36430; 86850; 86900; 86901; 86920; P9016

== ENCOUNTER 2024-11-05 07:46 | Outpatient (RCR) | payer OTHER, SELFPAY ==
[2024-10-22] VITALS (7 sets, daily range): BP systolic 120–168; BP diastolic 62–86
[2024-11-04 09:01] LABS: Absolute Neutrophils -Man Diff 33.8 10^3/uL (1.4-6.5); Band Neutrophils 19 % (0-3); Hematocrit 23.7 % (39.0-52.0); Lymphocytes 8 % (20-51); Mean Corp Hgb Conc. 33.8 g/dL (33.0-37.0); Mean Corpuscular Hgb 27.8 pg (27.0-31.0); Mean Corpuscular Volume 82.3 fL (80.0-94.0); Mean Platelet Volume 10.8 fL (7.4-10.4); Metamyelocytes 12 % (-); Monocytes 6 % (2-9); Myelocytes 5 % (-); Platelet Count 259 10^3/uL (130-400); Platelets Checked Yes; Red Blood Cell Count 2.88 10^6/uL (4.70-6.10); Red Cell Dist. Width 19.6 % (11.5-14.5); Segmented Neutrophils 50 % (42-75)
[2024-11-04 09:02] LABS: Anisocytosis 1+; Hypochromasia 1+; Normal RBC Morphology No; Ovalocytes 1+; Polychromasia 1+; Total Cells Counted 100
[2024-11-05 08:08] VITALS: BP 131/76
[2024-11-05 08:25] VITALS: BP 130/68
[2024-11-05 09:59] VITALS: BP 132/62
[2024-11-05 10:11] VITALS: BP 132/62
[2024-11-05 10:27] VITALS: BP 141/65
[2024-11-05 12:51] VITALS: BP 162/80
== END 2024-11-13 23:59 | disposition home or self-care (01) ==
LOC: OID 07:46
PROVIDERS: ATTENDING PHYSICIAN Internal Medicine Hematology & Oncology
DX: D47.3 Essential (hemorrhagic) thrombocythemia (principal); D50.9 Iron deficiency anemia, unspecified; D75.81 Myelofibrosis; R16.1 Splenomegaly, not elsewhere classified
CPT/HCPCS: 36415; 36430; 85025; 86850; 86900; 86901; 86920; P9016

== ENCOUNTER 2024-12-10 08:27 | Outpatient (RCR) | payer OTHER, SELFPAY ==
[2024-11-26 08:36] LABS: Hematocrit 17.8 % (39.0-52.0); Hemoglobin 5.8 g/dL (13.0-18.0); Mean Corp Hgb Conc. 32.6 g/dL (33.0-37.0); Mean Corpuscular Hgb 27.2 pg (27.0-31.0); Mean Corpuscular Volume 83.6 fL (80.0-94.0); Mean Platelet Volume 11.8 fL (7.4-10.4); Platelet Count 135 10^3/uL (130-400); Red Blood Cell Count 2.13 10^6/uL (4.70-6.10); Red Cell Dist. Width 19.2 % (11.5-14.5); White Blood Cell Count 65.2 10^3/uL (4.8-10.8)
[2024-11-26 10:35] LABS: Absolute Neutrophils -Man Diff 50.2 10^3/uL (1.4-6.5); Band Neutrophils 23 % (0-3); Segmented Neutrophils 54 % (42-75)
[2024-11-26 10:36] LABS: Anisocytosis 1+; Atypical Lymphocytes 1 %; Hypochromasia 1+; Lymphocytes 6 % (20-51); Metamyelocytes 8 % (-); Monocytes 4 % (2-9); Myelocytes 3 % (-); Normal RBC Morphology No; Ovalocytes 1+; Platelets Checked Yes; Polychromasia 1+; Promyelocytes 1 % (-); Total Cells Counted 100
[2024-11-26 11:50] VITALS: BP 139/70
[2024-11-26 12:08] VITALS: BP 142/72
[2024-11-26 13:39] VITALS: BP 128/65
[2024-11-26 13:48] VITALS: BP 128/65
[2024-11-26 14:12] VITALS: BP 128/66
[2024-11-26 16:29] VITALS: BP 157/80
[2024-12-10] VITALS (7 sets, daily range): BP systolic 110–159; BP diastolic 54–83
== END 2024-12-14 23:59 | disposition home or self-care (01) ==
LOC: OID 08:27
PROVIDERS: ATTENDING PHYSICIAN Internal Medicine Hematology & Oncology; FAMILY PHYSICIAN Family Medicine
DX: D47.3 Essential (hemorrhagic) thrombocythemia (principal); D50.9 Iron deficiency anemia, unspecified; D75.81 Myelofibrosis; R16.1 Splenomegaly, not elsewhere classified
CPT/HCPCS: 36415; 36430; 85025; 86850; 86900; 86901; 86920; P9016

== ENCOUNTER 2024-12-24 08:25 | Outpatient (RCR) | payer OTHER, SELFPAY ==
[2024-12-24 08:47] VITALS: BP 143/60
[2024-12-24 09:04] VITALS: BP 114/51
[2024-12-24 10:40] VITALS: BP 139/61
[2024-12-24 10:50] VITALS: BP 139/61
[2024-12-24 11:08] VITALS: BP 143/61
[2024-12-24 13:02] VITALS: BP 166/75
== END 2025-01-12 13:23 | disposition home or self-care (01) ==
LOC: OID 08:25
PROVIDERS: ATTENDING PHYSICIAN Internal Medicine Hematology & Oncology; FAMILY PHYSICIAN Family Medicine
DX: D47.3 Essential (hemorrhagic) thrombocythemia (principal); D50.9 Iron deficiency anemia, unspecified; D75.81 Myelofibrosis; R16.1 Splenomegaly, not elsewhere classified
CPT/HCPCS: 36415; 36430; 86850; 86900; 86901; 86920; P9016

== ENCOUNTER 2025-02-11 08:22 | Outpatient (RCR) | payer OTHER, SELFPAY ==
[2025-01-14] VITALS (7 sets, daily range): BP systolic 107–140; BP diastolic 53–83
[2025-01-28 07:59] VITALS: BP 128/63
[2025-01-28 08:22] VITALS: BP 123/62
[2025-01-28 10:04] VITALS: BP 144/66
[2025-01-28 10:25] VITALS: BP 133/67
[2025-01-28 12:25] VITALS: BP 153/78
[2025-02-11 08:52] VITALS: BP 109/67
[2025-02-11 09:10] VITALS: BP 97/51
[2025-02-11 11:26] VITALS: BP 147/69
[2025-02-11 11:34] VITALS: BP 147/69
[2025-02-11 11:51] VITALS: BP 132/71
[2025-02-11 13:38] VITALS: BP 129/73
== END 2025-02-13 23:59 | disposition home or self-care (01) ==
LOC: OID 08:22
PROVIDERS: ATTENDING PHYSICIAN Internal Medicine Hematology & Oncology; FAMILY PHYSICIAN Family Medicine
DX: D47.3 Essential (hemorrhagic) thrombocythemia (principal); D50.9 Iron deficiency anemia, unspecified; D75.81 Myelofibrosis; R16.1 Splenomegaly, not elsewhere classified
CPT/HCPCS: 36415; 36430; 86850; 86900; 86901; 86920; P9016

== ENCOUNTER → 2025-03-10 07:12 | Outpatient (REF) | payer OTHER, SELFPAY | LOC: REG 07:12 | PROVIDERS: ATTENDING PHYSICIAN Internal Medicine Hematology & Oncology; FAMILY PHYSICIAN Family Medicine | DX: D47.3 Essential (hemorrhagic) thrombocythemia (principal); D50.9 Iron deficiency anemia, unspecified; D75.81 Myelofibrosis; R16.1 Splenomegaly, not elsewhere classified | CPT/HCPCS: 36415; 86850; 86900; 86901 ==

== ENCOUNTER 2025-03-10 14:45 | Outpatient (RCR) | payer OTHER, SELFPAY ==
[2025-02-25 09:01] VITALS: BP 116/67
[2025-02-25 09:18] VITALS: BP 111/59
[2025-02-25 11:42] VITALS: BP 175/84
[2025-02-25 11:51] VITALS: BP 175/84
[2025-02-25 12:09] VITALS: BP 181/89
[2025-02-25 14:21] VITALS: BP 142/80
[2025-03-10 14:58] LABS: % Basophils 2.7 % (0-2); % Eosinophils 2.2 % (0-6); % Immature Granulocytes 16.1 % (0-0.5); % Lymphocytes 9.6 % (20.5-51.1); % Monocytes 11.3 % (1.7-9.3); % Neutrophils 58.1 % (42.2-75.2); Absolute Eosinophils 0.8 10^3/uL (0-0.7); Absolute Lymphocytes 3.6 10^3/uL (1.2-3.4); Absolute Monocytes 4.2 10^3/uL (0.1-0.6); Absolute Neutrophils 21.8 10^3/uL (1.4-6.5); Hematocrit 28.9 % (39.0-52.0); Hemoglobin 9.7 g/dL (13.0-18.0); Mean Corp Hgb Conc. 33.6 g/dL (33.0-37.0); Mean Corpuscular Hgb 27.6 pg (27.0-31.0); Mean Corpuscular Volume 82.3 fL (80.0-94.0); Mean Platelet Volume 10.1 fL (7.4-10.4); Platelet Count 231 10^3/uL (130-400); Red Blood Cell Count 3.51 10^6/uL (4.70-6.10); Red Cell Dist. Width 16.8 % (11.5-14.5); White Blood Cell Count 37.5 10^3/uL (4.8-10.8)
[2025-03-10 16:49] LABS: Absolute Neutrophils -Man Diff 24.3 10^3/uL (1.4-6.5); Band Neutrophils 3 % (0-3); Eosinophils 1 % (0-6); Lymphocytes 18 % (20-51); Metamyelocytes 6 % (-); Monocytes 6 % (2-9); Myelocytes 4 % (-); Normal RBC Morphology Yes; Platelets Checked Yes; Segmented Neutrophils 62 % (42-75); Total Cells Counted 100
== END 2025-03-15 23:59 | disposition home or self-care (01) ==
LOC: OID 14:45
PROVIDERS: Nurse Practitioner Primary Care; ATTENDING PHYSICIAN Internal Medicine Hematology & Oncology; FAMILY PHYSICIAN Family Medicine
DX: D47.3 Essential (hemorrhagic) thrombocythemia (principal); D50.9 Iron deficiency anemia, unspecified; D75.81 Myelofibrosis; R16.1 Splenomegaly, not elsewhere classified
CPT/HCPCS: 36415; 36430; 85025; 86850; 86900; 86901; 86920; P9016

== ENCOUNTER 2025-03-18 07:44 | Outpatient (RCR) | payer OTHER, SELFPAY ==
[2025-03-17 08:14] LABS: Hematocrit 23.7 % (39.0-52.0); Hemoglobin 7.8 g/dL (13.0-18.0); Mean Corp Hgb Conc. 32.9 g/dL (33.0-37.0); Mean Corpuscular Volume 82.9 fL (80.0-94.0); Platelet Count 184 10^3/uL (130-400); Red Cell Dist. Width 16.8 % (11.5-14.5)
[2025-03-17 08:56] LABS: Absolute Neutrophils -Man Diff 27.9 10^3/uL (1.4-6.5); Platelets Checked Yes
[2025-03-17 08:57] LABS: Anisocytosis 1+; Hypochromasia Slight; Normal RBC Morphology No; Total Cells Counted 100
[2025-03-18] VITALS (7 sets, daily range): BP systolic 123–135; BP diastolic 60–71
== END 2025-04-15 23:59 | disposition home or self-care (01) ==
LOC: OID 07:44
PROVIDERS: ATTENDING PHYSICIAN Internal Medicine Hematology & Oncology; FAMILY PHYSICIAN Family Medicine
DX: D47.3 Essential (hemorrhagic) thrombocythemia (principal); D50.9 Iron deficiency anemia, unspecified; D75.81 Myelofibrosis; R16.1 Splenomegaly, not elsewhere classified
CPT/HCPCS: 36415; 36430; 85025; 86850; 86900; 86901; 86920; P9016

== ENCOUNTER 2025-04-15 07:25 | Emergency (ER) | payer OTHER, SELFPAY ==
[2025-04-15] VITALS (13 sets, daily range): BP systolic 100–155; BP diastolic 62–78; BMI 19.0
--- NOTE | 2025-04-15 07:45 | ED.GENMED ---
History of Present Illness
General
Chief Complaint: Abnormal Lab Value
Time Seen by Provider: 04/15/25 07:44
History of Present Illness
History of Present Illness:
PAST MEDICAL HISTORY AND REVIEW OF OLD RECORDS
- The patient has a history of myelofibrosis. I reviewed records, earlier this month, the white count was 35, hemoglobin was 7.8, and platelets were 184.
Note:
CHIEF COMPLAINT(S)
Severe anemia potentially requiring blood transfusion.
HISTORY OF PRESENT ILLNESS
The patient is a 74-year-old male with a history of myelofibrosis diagnosed over five years ago, presenting with a need for blood transfusion. The patient usually receives blood transfusions every two weeks; however, the last transfusion occurred
four weeks ago. He reports taking hydroxyurea, which aims to manage white blood cell counts. He is also on Ojjaara. The patient had an outpatient blood test on Saturday and received the results on Saturday, indicating hemoglobin around 7.1. The
outpatient infusion clinic was unable to accommodate him for today, directing him to the emergency department for a transfusion. The patient anticipates requiring two units of blood due to feeling low. He plays tennis and denies symptoms such as
shortness of breath, rectal bleeding, abdominal pain, or significant weakness. The patient has experienced substantial weight loss, approximately 30 pounds over five years due to the disease, yet he maintains a good appetite.
CHRONIC MEDICAL CONDITIONS SIGNIFICANTLY AFFECTING CARE
Myelofibrosis diagnosed over five years ago.
SOCIAL HISTORY
The patient reports significant weight loss due to myelofibrosis but maintains an active lifestyle, including playing tennis, and reports a healthy appetite.
MEDICATIONS
- Hydroxyurea for myelofibrosis.
- Low-dose aspirin (81mg).
REVIEW OF SYSTEMS
- General: Reports significant weight loss over five years.
- Hematologic: History of frequent blood transfusions for anemia.
- Respiratory: Denies shortness of breath.
- Gastrointestinal: Denies rectal bleeding or abdominal pain.
PHYSICAL EXAM
General: Alert, no acute distress. The patient is very thin and has low blood pressure readings.
Skin: Warm, dry. Appears somewhat pale.
Head: Normocephalic, atraumatic.
Neck: Supple, trachea midline.
Eye Ears, Nose, Mouth, and Throat: Oral mucosa moist.
Cardiovascular: Normal peripheral perfusion, no edema.
Respiratory: Respirations are non-labored.
Gastrointestinal: Abdomen nondistended.
Back: Normal range of motion, normal alignment.
Musculoskeletal: Normal range of motion, normal strength.
Neurological: Alert and oriented to person, place, time, and situation; no focal neurological deficit observed.
Psychiatric: Cooperative, appropriate mood & affect.
PROBLEM LIST
- Acute severe anemia requiring transfusion.
- Chronic myelofibrosis.
PLAN
Plan to administer two units of blood transfusion in the emergency department based on the patients current hemoglobin levels and symptomatic anemia. Further discussion to follow upon receiving lab results.
DIFFERENTIAL DIAGNOSIS
The Differential Diagnosis includes, in no particular order and is not limited to:
- Anemia of chronic disease
- Iron deficiency anemia
- Gastrointestinal bleeding
- Myelodysplastic syndrome
- Hemolytic anemia
- Bone marrow infiltration or suppression
- Chronic kidney disease
- Nutritional deficiencies (e.g., vitamin B12, folate)
- Malignancy-related anemia
- Aplastic anemia
LABS
- White count 32.4 which is near baseline, hemoglobin 7.1, platelets are normal at 325. Creatinine 2.2 which is worse than November of last year when it was 1.6.
UPDATE
-SUMMARY OF ENCOUNTER
The patient, a 74-year-old male with a history of myelofibrosis and severe anemia, presented to the emergency department for a blood transfusion. This visit was necessitated after his outpatient infusion clinic was unable to accommodate him. In the
emergency department, he received two units of blood to address his symptomatic anemia.
ASSESSMENT
The patient has acute severe anemia secondary to chronic myelofibrosis, requiring blood transfusion for symptomatic relief.
PLAN
Administer two units of blood transfusion in the emergency department. Ensure follow-up with transmission assembler Dr. Saucedo as an outpatient for ongoing management of his myelofibrosis and anemia.
INDEPENDENT REVIEW OF LABS AND INTERPRETATION OF TESTS
My independent review of the complete blood count (CBC) indicates a hemoglobin level around 6-8, consistent with severe anemia that necessitated transfusion.
MEDICAL DECISION MAKING
- Complexity of Data Reviewed: Chronic conditions affecting care include myelofibrosis.
Differential diagnosis includes anemia of chronic disease, iron deficiency anemia, gastrointestinal bleeding, myelodysplastic syndrome, hemolytic anemia, bone marrow infiltration or suppression, chronic kidney disease, nutritional deficiencies such
as vitamin B12 or folate, malignancy-related anemia, and aplastic anemia.
- Data:
Category 1: Reviewed patients prior lab results indicating severe anemia.
Category 2: My independent review of CBC supports transfusion decision.
- Risk:
Prescription drug management or therapy requiring monitoring for toxicity was not specifically initiated; however, blood transfusion carries its inherent risks.
DIAGNOSIS
- Severe anemia due to myelofibrosis (D63.8).
- Myelofibrosis (D75.81).
On reassessment, the patient has no significant symptoms and is eager to go home.
Past History
Past History
ED Past Medical History: Cancer, HTN, Hypercholesterolemia and NIDDM
ED Past Surgical History: Orthopedic (Right knee arthroscopy) and Other (Hernia repair 1964)
Social History
Tobacco: Former smoker
Alcohol: None
Personal:
Living: with family
Phy Exam
Physical Exam
Physical Exam:
See HPI
Course
Orders/Labs/Results
Orders:
Orders
04/15/25 07:50
Type And Crossmatch [Type+Screen] Urgent
Basic Metabolic Panel Urgent
Complete Blood Count/With Diff Urgent
Manual Differential Urgent
04/15/25 08:12
* Blood Bank Products Urgent
Blood Bank Products: *Packed RBC Leuko(PRBC's)
Quantity: 2
Transfuse Today: Yes
Reason: Anemia
Patient will require pre-treatment for transfusion:: No
Abnormal Lab Results
04/15/25
07:50
WBC 32.4 H 10^3/uL
(4.8-10.8)
RBC 2.52 L 10^6/uL
(4.70-6.10)
Hgb 7.1 L g/dL
(13.0-18.0)
Hct 21.3 L %
(39.0-52.0)
RDW 17.5 H %
(11.5-14.5)
Abs Neuts (Manual) 18.4 H 10^3/uL
(1.4-6.5)
Band Neutrophils 9 H %
(0-3)
BUN 54 H mg/dl
(9-20)
Creatinine 2.2 H mg/dL
(0.7-1.3)
Glucose 189 H mg/dl
(70-99)
Crossmatch IS Only See Detail
04/15/25 07:50
04/15/25 07:50
Vital Signs
Initial and Last Documented VS:
Initial Vital Signs
Temp Pulse Resp BP Pulse Ox
36.7 C 65 16 100/63 98
04/15/25 07:35 04/15/25 07:35 04/15/25 07:35 04/15/25 07:35 04/15/25 07:35
Last Documented Vital Signs
Temp Pulse Resp BP Pulse Ox
36.4 C 64 18 142/78 100
04/15/25 11:12 04/15/25 11:12 04/15/25 11:12 04/15/25 11:12 04/15/25 11:00
*Pulse Oximetry
SaO2: 98
Oxygen Mode of Delivery: Room air
Patient hypoxic: no
*Critical Care Note
Total Time (30-74mins, 75-104mins- exclusive of procedures): Not Applicable
ED Attending Note
-
Portions of this chart may have been created with voice recognition software.� Occasional wrong word or��sound alike� substitutions may have occurred due to the inherent limitations of voice recognition software.
Discharge Plan
Departure
Prescriptions:
No Action
atorvastatin 40 MG tablet
40 mg PO DAILY
Centrum Silver Tablet
1 tab PO DAILY
Fish Oil 500 mg Capsule
500 mg PO DAILY
metformin 500 mg Tablet
500 mg PO BID
aspirin 81 mg Tablet,Delayed Release (Dr/Ec)
81 mg PO DAILY
sodium bicarbonate
500 mg PO BID
ibuprofen 200 mg Tablet
200 mg PO Q6H PRN (Reason: mouth ulcer)
senna 8.6 mg Capsule
8.6 mg PO .QOD
Ojjaara 200 mg Tablet
200 mg PO HS
hydroxyurea [Hydrea] 500 mg Capsule
500 mg PO DAILY
Rx Instructions:
Saturday through Saturday
Referrals:
Reed Tam MD [Family Provider, Family Practice]
Interventions
Interventions:
*Risk Screen - Suicide Last Done: 04/15/25 07:35
*General Assessment Last Done: 04/15/25 07:40
*Neglect/Abuse Screening Last Done: 04/15/25 07:35
*ED- Fall Risk Assessment Last Done: 04/15/25 07:40
*ED COVID-19 Vaccine History Last Done: 04/15/25 07:40
Discharge Date and Time
Print Language: ITALIAN
[2025-04-15 08:23] LABS: Blood Urea Nitrogen 54 mg/dl (9-20); Calcium 8.7 mg/dl (8.4-10.2); Carbon Dioxide 26 mmol/L (22-30); Chloride 105 mmol/L (98-107); Estimated Creatinine Clearance 22 ml/min; Glucose 189 mg/dl (70-99); Potassium 4.5 mmol/L (3.5-5.1); Sodium 140 mmol/L (135-145); eGFR 30.47
[2025-04-15 08:31] LABS: Hematocrit 21.3 % (39.0-52.0); Hemoglobin 7.1 g/dL (13.0-18.0); Mean Corp Hgb Conc. 33.3 g/dL (33.0-37.0); Mean Corpuscular Volume 84.5 fL (80.0-94.0); Platelet Count 325 10^3/uL (130-400); Red Cell Dist. Width 17.5 % (11.5-14.5)
[2025-04-15 09:26] LABS: Absolute Neutrophils -Man Diff 18.4 10^3/uL (1.4-6.5); Anisocytosis 1+; Hypochromasia 1+; Normal RBC Morphology No; Platelets Checked Yes; Total Cells Counted 100
== END 2025-04-15 13:04 | disposition home or self-care (01) ==
LOC: EMR 07:25
PROVIDERS: EMERGENCY PHYSICIAN Emergency Medicine; FAMILY PHYSICIAN Family Medicine
DX: D64.89 Other specified anemias (principal); D63.8 Anemia in other chronic diseases classified elsewhere; D75.81 Myelofibrosis; E11.9 Type 2 diabetes mellitus without complications; E78.00 Pure hypercholesterolemia, unspecified; I10 Essential (primary) hypertension; Z79.64 Long term (current) use of myelosuppressive agent; Z87.891 Personal history of nicotine dependence
CPT/HCPCS: 36430; 99285; 80048; 85025; 86850; 86900; 86901; 86920; P9016

== ENCOUNTER 2025-05-04 09:47 | Emergency (ER) | payer OTHER, SELFPAY ==
[2025-05-04] VITALS (14 sets, daily range): BP systolic 123–170; BP diastolic 39–73; BMI 20.3
--- NOTE | 2025-05-04 10:08 | ED.GENMED ---
History of Present Illness
<Farhana Monique MD, Resident - Last Filed: 05/04/25 12:29>
General
Chief Complaint: Abnormal Lab Value
Source: patient
Exam Limitations: none
Time Seen by Provider: 05/04/25 10:06
Nursing documentation reviewed up to this point in time: agreed with
History of Present Illness
History of Present Illness:
74-year-old male with a past medical history of myelofibrosis, thrombocythemia, atrophy, hyperlipidemia, hypertension comes to the ED due to unable to get blood transfusion at [facility] today because they told him his hemoglobin levels were too high. He
does feel symptomatic and feels and wants to get blood transfusion because he thinks that his hemoglobin levels are low. He said that he went to [facility] yesterday where as per him his hemoglobin levels were 7.1. Other than some fatigue he has no
symptoms, reports no shortness of breath, chest pain, fever or chills.
Past History
<Farhana Monique MD, Resident - Last Filed: 05/04/25 12:29>
Past History
ED Past Medical History: Cancer, HTN, Hypercholesterolemia, NIDDM and Other (Myelofibrosis)
ED Past Surgical History: Orthopedic (Right knee arthroscopy) and Other (Hernia repair 1964)
Social History
Tobacco: Former smoker
Alcohol: None
Personal:
Living: with family
Review of Systems
<Farhana Monique MD, Resident - Last Filed: 05/04/25 12:29>
Review of Systems
Allergies reviewed?: Yes
Constitutional: Reports fatigue; Denies fever or chills
EENT: Reports no symptoms
Respiratory: Reports no symptoms
Cardiac: Reports no symptoms
ABD/GI: Reports no symptoms
: Reports no symptoms
Musculoskeletal: Reports no symptoms
Skin: Reports no symptoms
Neurological: Reports no symptoms
Endocrine: Reports no symptoms
Hematologic/Lymphatic: Reports no symptoms
Psychiatric: Reports no symptoms
Phy Exam
<Farhana Monique MD, Resident - Last Filed: 05/04/25 12:29>
General Physical Exam
General Presentation: well appearing
General age: appears stated age
General Skin: warm and dry
General Habitus: normal
General Mental: alert
Cardiovascular Exam
Cardiovascular Exam: regular rate/rhythm, no edema and no murmur
Pulmonary Exam
Pulmonary Exam: lungs clear, no respiratory distress, no crackles and no wheezing
Gastrointestinal Exam
Gastrointestinal Exam: normal bowel sounds, non tender, soft and non distended
Skin Exam
Skin Exam: normal color and warm/dry
Course
<Farhana Monique MD, Resident - Last Filed: 05/04/25 12:29>
Orders/Labs/Results
Orders:
Orders
05/04/25 10:32
Type+Screen Urgent
Basic Metabolic Panel Urgent
Complete Blood Count/With Diff Urgent
Manual Differential Urgent
05/04/25 11:01
* Blood Bank Products Urgent
Blood Bank Products: *Packed RBC Leuko(PRBC's)
Quantity: 2
Transfuse Today: Yes
Reason: Anemia
Patient will require pre-treatment for transfusion:: No
Abnormal Lab Results
05/04/25
10:32
WBC 27.7 H 10^3/uL
(4.8-10.8)
RBC 2.34 L 10^6/uL
(4.70-6.10)
Hgb 6.9 L* g/dL
(13.0-18.0)
Hct 20.9 L* %
(39.0-52.0)
RDW 20.1 H %
(11.5-14.5)
MPV 10.6 H fL
(7.4-10.4)
Abs Immat Gran (auto) 4.1 H 10^3/uL
(0-0.05)
Absolute Neuts (auto) 15.9 H 10^3/uL
(1.4-6.5)
Absolute Lymphs (auto) 4.1 H 10^3/uL
(1.2-3.4)
Absolute Monos (auto) 2.7 H 10^3/uL
(0.1-0.6)
Absolute Basos (auto) 0.3 H 10^3/uL
(0-0.2)
Immature Gran % 14.6 H %
(0-0.5)
Lymphocytes % 14.9 L %
(20.5-51.1)
Monocytes % 9.8 H %
(1.7-9.3)
Abs Neuts (Manual) 18.8 H 10^3/uL
(1.4-6.5)
Band Neutrophils 14 H %
(0-3)
Lymphocytes (Manual) 18 L %
(20-51)
Chloride 110 H mmol/L
(98-107)
BUN 57 H mg/dl
(9-20)
Creatinine 2.0 H mg/dL
(0.7-1.3)
Glucose 146 H mg/dl
(70-99)
Crossmatch IS Only See Detail
05/04/25 10:32
05/04/25 10:32
Vital Signs
Initial and Last Documented VS:
Initial Vital Signs
Temp Pulse Resp BP Pulse Ox
97.3 F 60 18 124/61 100
05/04/25 09:50 05/04/25 09:50 05/04/25 09:50 05/04/25 09:50 05/04/25 09:50
Last Documented Vital Signs
Temp Pulse Resp BP Pulse Ox
97.3 F 60 18 124/61 100
05/04/25 09:50 05/04/25 09:50 05/04/25 09:50 05/04/25 09:50 05/04/25 10:11
<Jeancarlos Estevez Kalyan, DO - Last Filed: 05/04/25 12:04>
Orders/Labs/Results
Orders:
Orders
05/04/25 10:32
Type+Screen Urgent
Basic Metabolic Panel Urgent
Complete Blood Count/With Diff Urgent
Manual Differential Urgent
05/04/25 11:01
* Blood Bank Products Urgent
Blood Bank Products: *Packed RBC Leuko(PRBC's)
Quantity: 2
Transfuse Today: Yes
Reason: Anemia
Patient will require pre-treatment for transfusion:: No
Abnormal Lab Results
05/04/25
10:32
WBC 27.7 H 10^3/uL
(4.8-10.8)
RBC 2.34 L 10^6/uL
(4.70-6.10)
Hgb 6.9 L* g/dL
(13.0-18.0)
Hct 20.9 L* %
(39.0-52.0)
RDW 20.1 H %
(11.5-14.5)
MPV 10.6 H fL
(7.4-10.4)
Abs Immat Gran (auto) 4.1 H 10^3/uL
(0-0.05)
Absolute Neuts (auto) 15.9 H 10^3/uL
(1.4-6.5)
Absolute Lymphs (auto) 4.1 H 10^3/uL
(1.2-3.4)
Absolute Monos (auto) 2.7 H 10^3/uL
(0.1-0.6)
Absolute Basos (auto) 0.3 H 10^3/uL
(0-0.2)
Immature Gran % 14.6 H %
(0-0.5)
Lymphocytes % 14.9 L %
(20.5-51.1)
Monocytes % 9.8 H %
(1.7-9.3)
Abs Neuts (Manual) 18.8 H 10^3/uL
(1.4-6.5)
Band Neutrophils 14 H %
(0-3)
Lymphocytes (Manual) 18 L %
(20-51)
Chloride 110 H mmol/L
(98-107)
BUN 57 H mg/dl
(9-20)
Creatinine 2.0 H mg/dL
(0.7-1.3)
Glucose 146 H mg/dl
(70-99)
Crossmatch IS Only See Detail
05/04/25 10:32
05/04/25 10:32
Vital Signs
Initial and Last Documented VS:
Initial Vital Signs
Temp Pulse Resp BP Pulse Ox
97.3 F 60 18 124/61 100
05/04/25 09:50 05/04/25 09:50 05/04/25 09:50 05/04/25 09:50 05/04/25 09:50
Last Documented Vital Signs
Temp Pulse Resp BP Pulse Ox
97.3 F 60 18 124/61 100
05/04/25 09:50 05/04/25 09:50 05/04/25 09:50 05/04/25 09:50 05/04/25 10:11
<Farhana Monique MD, Resident - Last Filed: 05/04/25 12:29>
MDM/Problems Addressed
Differential Diagnosis Includes:
Anemia due to underlying blood disorder
MDM/Problems Addressed:
74-year-old male with a past medical history of myelofibrosis, high blood pressure, hyperlipidemia comes to the ED due to recent fatigue and weakness most likely due to anemia from underlying myelofibrosis.
We will recheck his hemoglobin levels here, do type and screen
Depending on levels will give transfusion of blood
Patient's hemoglobin level was found to be 6.9, will transfuse 2 units of blood
Will discharge patient after monitoring for any reaction to transfusion
Chronic conditions affecting care: Other (Myelofibrosis)
<Farhana Monique MD, Resident - Last Filed: 05/04/25 12:29>
*Pulse Oximetry
SaO2: 100
Oxygen Mode of Delivery: Room air
Patient hypoxic: no
*Critical Care Note
Total Time (30-74mins, 75-104mins- exclusive of procedures): Not Applicable
ED Attending Note
<Farhana Monique MD, Resident - Last Filed: 05/04/25 12:29>
-
Portions of this chart may have been created with voice recognition software.� Occasional wrong word or��sound alike� substitutions may have occurred due to the inherent limitations of voice recognition software.
<Jeancarlos Biggs, DO - Last Filed: 05/04/25 12:04>
ED Attending Note
Patient seen and examined by attending physician: Yes
I performed the substantive portion of visit, reviewed & personally made and approve the management plan that is documented in note by myself or [place].: Yes
ED Attending Note:
I evaluated patient at bedside. The patient is well-appearing. Will plan blood transfusion and give patient 2 units of blood as his hemoglobin currently is 6.9. This was unable to be performed as an outpatient.
Discharge Plan
Departure
Patient Disposition: Home (Routine Discharge)
Date of Disposition: 05/04/25
Time of Disposition: 12:28
Patient with high blood pressure during this ER visit?: No
Condition: Good
Covid-19: Not Applicable
Discharge Problem:
Anemia due to chronic illness, Myelofibrosis
Instructions: Blood transfusion
Prescriptions:
No Action
atorvastatin 40 MG tablet
40 mg PO DAILY
Centrum Silver Tablet
1 tab PO DAILY
Fish Oil 500 mg Capsule
500 mg PO DAILY
metformin 500 mg Tablet
500 mg PO BID
aspirin 81 mg Tablet,Delayed Release (Dr/Ec)
81 mg PO DAILY
sodium bicarbonate
500 mg PO BID
ibuprofen 200 mg Tablet
200 mg PO Q6H PRN (Reason: mouth ulcer)
senna 8.6 mg Capsule
8.6 mg PO .QOD
Ojjaara 200 mg Tablet
200 mg PO HS
hydroxyurea [Hydrea] 500 mg Capsule
500 mg PO DAILY
Rx Instructions:
Saturday through Saturday
Referrals:
Reed Tam MD [Family Provider, Family Practice]
Dwain Diaz MD [Active, Hematology / Oncology] - Keep scheduled appt
Referral Note: Continue following up with Dr. Diaz for your management of myelofibrosis
Activity Restrictions/Additional Instructions:
As discussed, please continue to follow up with Dr. Diaz regarding your myelofibrosis
Please continue making regular visits to your blood transfusion center, keep up-to-date with labs
If you develop any worsening symptoms such as lightheadedness, fatigue, chest pain, shortness of breath, fever please return to the ED for further management
Interventions
Interventions:
*Risk Screen - Suicide Last Done: 05/04/25 09:50
*General Assessment Last Done: 05/04/25 09:50
Discharge Date and Time
Print Language: MALIAN
[2025-05-04 10:53] LABS: Hematocrit 20.9 % (39.0-52.0); Hemoglobin 6.9 g/dL (13.0-18.0); Mean Corp Hgb Conc. 33.0 g/dL (33.0-37.0); Mean Corpuscular Volume 89.3 fL (80.0-94.0); Nucleated Red Blood Cells % 0 % (-); Platelet Count 285 10^3/uL (130-400); Red Cell Dist. Width 20.1 % (11.5-14.5)
[2025-05-04 11:03] LABS: Blood Urea Nitrogen 57 mg/dl (9-20); Calcium 9.2 mg/dl (8.4-10.2); Carbon Dioxide 23 mmol/L (22-30); Chloride 110 mmol/L (98-107); Glucose 146 mg/dl (70-99); Potassium 4.4 mmol/L (3.5-5.1); Sodium 141 mmol/L (135-145); eGFR 34.16
[2025-05-04 11:36] LABS: Absolute Neutrophils -Man Diff 18.8 10^3/uL (1.4-6.5); Platelets Checked Yes
[2025-05-04 11:37] LABS: Anisocytosis 2+; Hypochromasia 1+; Normal RBC Morphology No; Polychromasia 1+; Spherocytes 1+; Total Cells Counted 100
== END 2025-05-04 19:12 | disposition home or self-care (01) ==
LOC: EMR 09:47
PROVIDERS: EMERGENCY PHYSICIAN Emergency Medicine; FAMILY PHYSICIAN Family Medicine
DX: D64.9 Anemia, unspecified (principal); D75.81 Myelofibrosis; E11.9 Type 2 diabetes mellitus without complications; I10 Essential (primary) hypertension; E78.00 Pure hypercholesterolemia, unspecified; Z87.891 Personal history of nicotine dependence; Z79.82 Long term (current) use of aspirin; Z79.84 Long term (current) use of oral hypoglycemic drugs
CPT/HCPCS: 99285; 36430; 80048; 85025; 86850; 86900; 86901; 86920; P9016

== ENCOUNTER → 2025-05-22 09:30 | Outpatient (REF) | payer OTHER, SELFPAY ==
[2025-05-22 10:37] LABS: Hematocrit 21.4 % (39.0-52.0); Hemoglobin 7.2 g/dL (13.0-18.0); Mean Corp Hgb Conc. 33.6 g/dL (33.0-37.0); Mean Corpuscular Volume 92.6 fL (80.0-94.0); Platelet Count 310 10^3/uL (130-400); Red Cell Dist. Width 20.8 % (11.5-14.5)
[2025-05-22 11:34] LABS: Macrocytosis Occasional; Platelets Checked Yes
[2025-05-22 11:35] LABS: Normal RBC Morphology No; Polychromasia Slight; Toxic Granulation Slight
[2025-05-22 11:36] LABS: Total Cells Counted 100
[2025-05-22 12:58] LABS: Absolute Neutrophils -Man Diff 19.1 10^3/uL (1.4-6.5)
== END ==
LOC: REG 09:30
PROVIDERS: ATTENDING PHYSICIAN Internal Medicine Hematology & Oncology; FAMILY PHYSICIAN Family Medicine; REFERRING PHYSICIAN Nurse Practitioner Primary Care
DX: D47.3 Essential (hemorrhagic) thrombocythemia (principal); D50.9 Iron deficiency anemia, unspecified; D75.81 Myelofibrosis; R16.1 Splenomegaly, not elsewhere classified
CPT/HCPCS: 36415; 85025; 86850; 86900; 86901; 86920

== ENCOUNTER 2025-06-07 08:48 | Outpatient (RCR) | payer OTHER, SELFPAY ==
[2025-05-24] VITALS (7 sets, daily range): BP systolic 109–143; BP diastolic 49–65
[2025-05-31 10:30] LABS: Hematocrit 29.5 % (39.0-52.0); Hemoglobin 10.0 g/dL (13.0-18.0); Mean Corp Hgb Conc. 33.9 g/dL (33.0-37.0); Mean Corpuscular Volume 90.5 fL (80.0-94.0); Nucleated Red Blood Cells % 0 % (-); Platelet Count 361 10^3/uL (130-400); Red Cell Dist. Width 19.9 % (11.5-14.5)
[2025-06-07 09:40] LABS: Hematocrit 24.2 % (39.0-52.0); Hemoglobin 8.0 g/dL (13.0-18.0); Mean Corp Hgb Conc. 33.1 g/dL (33.0-37.0); Mean Corpuscular Volume 90.6 fL (80.0-94.0); Nucleated Red Blood Cells % 0 % (-); Platelet Count 313 10^3/uL (130-400); Red Cell Dist. Width 20.4 % (11.5-14.5)
[2025-06-14 09:45] LABS: Hematocrit 23.1 % (39.0-52.0); Hemoglobin 7.6 g/dL (13.0-18.0); Mean Corp Hgb Conc. 32.9 g/dL (33.0-37.0); Mean Corpuscular Volume 91.3 fL (80.0-94.0); Nucleated Red Blood Cells % 0 % (-); Platelet Count 398 10^3/uL (130-400); Red Cell Dist. Width 20.6 % (11.5-14.5)
== END 2025-06-14 13:42 | disposition home or self-care (01) ==
LOC: OIDL 08:48
PROVIDERS: ATTENDING PHYSICIAN Internal Medicine Hematology & Oncology; FAMILY PHYSICIAN Family Medicine
DX: D47.3 Essential (hemorrhagic) thrombocythemia (principal); D50.9 Iron deficiency anemia, unspecified; D75.81 Myelofibrosis; R16.1 Splenomegaly, not elsewhere classified
CPT/HCPCS: 36415; 36430; 85025; 86850; 86900; 86901; 86920; P9016

== ENCOUNTER 2025-07-08 07:42 | Outpatient (RCR) | payer OTHER, SELFPAY ==
[2025-06-17 08:09] VITALS: BP 117/60
[2025-06-17 08:27] VITALS: BP 120/59
[2025-06-17 10:16] VITALS: BP 129/55
[2025-06-17 10:24] VITALS: BP 129/55
[2025-06-17 10:43] VITALS: BP 132/64
[2025-06-17 12:31] VITALS: BP 151/74
[2025-06-21 10:10] LABS: Hematocrit 28.9 % (39.0-52.0); Hemoglobin 9.3 g/dL (13.0-18.0); Mean Corp Hgb Conc. 32.2 g/dL (33.0-37.0); Mean Corpuscular Volume 91.7 fL (80.0-94.0); Nucleated Red Blood Cells % 0 % (-); Platelet Count 359 10^3/uL (130-400); Red Cell Dist. Width 20.9 % (11.5-14.5)
[2025-06-28 09:47] LABS: Hematocrit 25.5 % (39.0-52.0); Hemoglobin 8.2 g/dL (13.0-18.0); Mean Corp Hgb Conc. 32.2 g/dL (33.0-37.0); Mean Corpuscular Volume 92.7 fL (80.0-94.0); Nucleated Red Blood Cells % 0 % (-); Platelet Count 342 10^3/uL (130-400); Red Cell Dist. Width 21.2 % (11.5-14.5)
[2025-07-05 10:11] LABS: Hematocrit 23.5 % (39.0-52.0); Hemoglobin 7.8 g/dL (13.0-18.0); Mean Corp Hgb Conc. 33.2 g/dL (33.0-37.0); Mean Corpuscular Volume 94.0 fL (80.0-94.0); Nucleated Red Blood Cells % 0 % (-); Platelet Count 365 10^3/uL (130-400); Red Cell Dist. Width 21.8 % (11.5-14.5)
[2025-07-08 08:08] VITALS: BP 127/59
[2025-07-08 08:26] VITALS: BP 140/62
[2025-07-08 09:57] VITALS: BP 127/56
[2025-07-08 10:07] VITALS: BP 127/56
[2025-07-08 10:25] VITALS: BP 123/58
[2025-07-08 12:08] VITALS: BP 150/62
[2025-07-12 10:09] LABS: Hematocrit 29.2 % (39.0-52.0); Hemoglobin 9.6 g/dL (13.0-18.0); Mean Corp Hgb Conc. 32.9 g/dL (33.0-37.0); Mean Corpuscular Volume 93.3 fL (80.0-94.0); Nucleated Red Blood Cells % 0 % (-); Platelet Count 387 10^3/uL (130-400); Red Cell Dist. Width 21.7 % (11.5-14.5)
== END 2025-07-16 23:59 | disposition home or self-care (01) ==
LOC: OID 07:42
PROVIDERS: Nurse Practitioner Adult Health; ATTENDING PHYSICIAN Internal Medicine Hematology & Oncology; FAMILY PHYSICIAN Family Medicine
DX: D47.3 Essential (hemorrhagic) thrombocythemia (principal); D50.9 Iron deficiency anemia, unspecified; D75.81 Myelofibrosis; E16.1 Other hypoglycemia
CPT/HCPCS: 36415; 36430; 85025; 86850; 86900; 86901; 86920; P9016

== ENCOUNTER 2025-07-29 07:40 | Outpatient (RCR) | payer OTHER, SELFPAY ==
[2025-07-19 10:16] LABS: Hematocrit 26.4 % (39.0-52.0); Hemoglobin 8.7 g/dL (13.0-18.0); Mean Corp Hgb Conc. 33.0 g/dL (33.0-37.0); Mean Corpuscular Volume 93.3 fL (80.0-94.0); Nucleated Red Blood Cells % 0 % (-); Platelet Count 445 10^3/uL (130-400); Red Cell Dist. Width 22.1 % (11.5-14.5)
[2025-07-19 10:28] LABS: Albumin 4.0 g/dl (3.5-5.0); Blood Urea Nitrogen 40 mg/dl (9-20); Calcium 8.8 mg/dl (8.4-10.2); Carbon Dioxide 29 mmol/L (22-30); Chloride 103 mmol/L (98-107); Glucose 167 mg/dl (70-99); Potassium 4.3 mmol/L (3.5-5.1); Sodium 141 mmol/L (135-145); eGFR 41.52
[2025-07-26 10:00] LABS: Hematocrit 24.0 % (39.0-52.0); Hemoglobin 7.9 g/dL (13.0-18.0); Mean Corp Hgb Conc. 32.9 g/dL (33.0-37.0); Mean Corpuscular Volume 95.6 fL (80.0-94.0); Platelet Count 528 10^3/uL (130-400); Red Cell Dist. Width 22.5 % (11.5-14.5)
[2025-07-26 10:46] LABS: Anisocytosis 2+; Hypochromasia 1+; Macrocytosis 1+; Normal RBC Morphology Yes; Ovalocytes 1+; Spherocytes 1+
[2025-07-26 10:47] LABS: Nucleated Red Blood Cells % 0 % (-)
[2025-07-29 08:15] VITALS: BP 138/61
[2025-07-29 08:34] VITALS: BP 123/55
[2025-07-29 10:15] VITALS: BP 114/52
[2025-07-29 10:24] VITALS: BP 114/52
[2025-07-29 10:41] VITALS: BP 115/52
[2025-07-29 12:46] VITALS: BP 137/86
[2025-08-02 10:03] LABS: Hematocrit 31.1 % (39.0-52.0); Hemoglobin 10.3 g/dL (13.0-18.0); Mean Corp Hgb Conc. 33.1 g/dL (33.0-37.0); Mean Corpuscular Volume 94.2 fL (80.0-94.0); Platelet Count 477 10^3/uL (130-400); Red Cell Dist. Width 22.5 % (11.5-14.5)
[2025-08-02 10:41] LABS: Nucleated Red Blood Cells % 0 % (-)
[2025-08-09 09:17] LABS: Hematocrit 27.9 % (39.0-52.0); Hemoglobin 9.1 g/dL (13.0-18.0); Mean Corp Hgb Conc. 32.6 g/dL (33.0-37.0); Mean Corpuscular Volume 95.9 fL (80.0-94.0); Platelet Count 498 10^3/uL (130-400); Red Cell Dist. Width 23.5 % (11.5-14.5)
[2025-08-09 12:10] LABS: Nucleated Red Blood Cells % 0 % (-)
== END 2025-08-11 12:22 | disposition home or self-care (01) ==
LOC: OID 07:40
PROVIDERS: Internal Medicine; Nurse Practitioner Adult Health; ATTENDING PHYSICIAN Internal Medicine Hematology & Oncology; FAMILY PHYSICIAN Family Medicine
DX: D47.3 Essential (hemorrhagic) thrombocythemia (principal); D50.9 Iron deficiency anemia, unspecified; D75.81 Myelofibrosis; E16.1 Other hypoglycemia
CPT/HCPCS: 36415; 36430; 80069; 82570; 84156; 85025; 86850; 86900; 86901; 86920; P9016

== ENCOUNTER → 2025-09-11 07:13 | Outpatient (REF) | payer OTHER, SELFPAY ==
[2025-09-11 09:28] LABS: ALT (SGPT) 147 U/L (0-50); AST (SGOT) 57 U/L (17-59); Albumin 4.0 g/dl (3.5-5.0); Alkaline Phosphatase 184 U/L (38-126); Blood Urea Nitrogen 38 mg/dl (9-20); Calcium 8.9 mg/dl (8.4-10.2); Carbon Dioxide 31 mmol/L (22-30); Chloride 101 mmol/L (98-107); Glucose 146 mg/dl (70-99); HDL Cholesterol 50 mg/dl; LDL Cholesterol, Calculated 45 mg/dl; Potassium 4.5 mmol/L (3.5-5.1); Sodium 139 mmol/L (135-145); Total Protein 7.7 g/dl (6.3-8.2); Very Low Density Lipoprotein 24 mg/dl (0-30); eGFR 36.33
== END ==
LOC: REG 07:13
PROVIDERS: ATTENDING PHYSICIAN Internal Medicine Hematology & Oncology; FAMILY PHYSICIAN Family Medicine
DX: D47.3 Essential (hemorrhagic) thrombocythemia (principal); D50.9 Iron deficiency anemia, unspecified; D75.81 Myelofibrosis; R16.1 Splenomegaly, not elsewhere classified; E78.2 Mixed hyperlipidemia; E11.22 Type 2 diabetes mellitus with diabetic chronic kidney disease
CPT/HCPCS: 36415; 80053; 80061; 83036; 85025; 86850; 86900; 86901; 86920

== ENCOUNTER 2025-09-13 07:46 | Outpatient (RCR) | payer OTHER, SELFPAY ==
[2025-08-16 10:09] LABS: Hematocrit 27.9 % (39.0-52.0); Hemoglobin 9.1 g/dL (13.0-18.0); Mean Corp Hgb Conc. 32.6 g/dL (33.0-37.0); Mean Corpuscular Volume 96.2 fL (80.0-94.0); Nucleated Red Blood Cells % 0 % (-); Platelet Count 588 10^3/uL (130-400); Red Cell Dist. Width 24.3 % (11.5-14.5)
[2025-08-16 10:36] LABS: Albumin 4.2 g/dl (3.5-5.0); Blood Urea Nitrogen 31 mg/dl (9-20); Calcium 9.0 mg/dl (8.4-10.2); Carbon Dioxide 30 mmol/L (22-30); Chloride 105 mmol/L (98-107); Glucose 153 mg/dl (70-99); Potassium 3.8 mmol/L (3.5-5.1); Sodium 139 mmol/L (135-145); eGFR 44.65
[2025-08-23 09:56] LABS: Hematocrit 24.4 % (39.0-52.0); Hemoglobin 8.0 g/dL (13.0-18.0); Mean Corp Hgb Conc. 32.8 g/dL (33.0-37.0); Mean Corpuscular Volume 93.8 fL (80.0-94.0); Nucleated Red Blood Cells % 0 % (-); Platelet Count 596 10^3/uL (130-400); Red Cell Dist. Width 25.2 % (11.5-14.5)
[2025-08-25 08:51] LABS: Hematocrit 24.5 % (39.0-52.0); Hemoglobin 7.9 g/dL (13.0-18.0); Mean Corp Hgb Conc. 32.2 g/dL (33.0-37.0); Mean Corpuscular Volume 95.7 fL (80.0-94.0); Platelet Count 520 10^3/uL (130-400); Red Cell Dist. Width 26.4 % (11.5-14.5)
[2025-08-25 10:05] LABS: Nucleated Red Blood Cells % 0 % (-)
[2025-08-26] VITALS (7 sets, daily range): BP systolic 140–159; BP diastolic 65–82
[2025-08-30 10:17] LABS: Hematocrit 29.3 % (39.0-52.0); Hemoglobin 9.4 g/dL (13.0-18.0); Mean Corp Hgb Conc. 32.1 g/dL (33.0-37.0); Mean Corpuscular Volume 96.1 fL (80.0-94.0); Nucleated Red Blood Cells % 0 % (-); Platelet Count 602 10^3/uL (130-400); Red Cell Dist. Width 24.5 % (11.5-14.5)
[2025-09-06 10:19] LABS: Hematocrit 28.3 % (39.0-52.0); Hemoglobin 8.8 g/dL (13.0-18.0); Mean Corp Hgb Conc. 31.1 g/dL (33.0-37.0); Mean Corpuscular Volume 100.7 fL (80.0-94.0); Platelet Count 556 10^3/uL (130-400); Red Cell Dist. Width 24.8 % (11.5-14.5)
[2025-09-06 11:47] LABS: Nucleated Red Blood Cells % 0 % (-)
[2025-09-11 08:59] LABS: Hematocrit 27.2 % (39.0-52.0); Hemoglobin 8.8 g/dL (13.0-18.0); Mean Corp Hgb Conc. 32.4 g/dL (33.0-37.0); Mean Corpuscular Volume 98.2 fL (80.0-94.0); Platelet Count 691 10^3/uL (130-400); Red Cell Dist. Width 25.0 % (11.5-14.5)
[2025-09-11 10:17] LABS: Absolute Neutrophils -Man Diff 17.6 10^3/uL (1.4-6.5); Nucleated Red Blood Cells % 0.1 % (-)
[2025-09-11 10:18] LABS: Platelets Checked Yes
[2025-09-11 10:20] LABS: Anisocytosis 1+; Hypochromasia 1+; Macrocytosis Slight; Normal RBC Morphology No
[2025-09-11 10:21] LABS: Ovalocytes 1+; Total Cells Counted 100
[2025-09-11 12:43] LABS: Glycohemoglobin (HgbA1c) 7.8 % (4.0-5.9)
[2025-09-13 07:50] VITALS: BP 146/67
[2025-09-13 08:43] VITALS: BP 146/67
[2025-09-13 09:01] VITALS: BP 133/52
--- NOTE | 2025-09-13 10:16 | PTCARENOTE ---
pt here for 2 units of prbc's, pt hgb is 8.8, and is requesting only 1 unit today. [employer] SU[employer] REPRESENTATIVE from [place] [facility] to make aware and change order, will follow.
[2025-09-13 10:51] VITALS: BP 156/62
== END 2025-09-15 23:59 | disposition home or self-care (01) ==
LOC: OID 07:46
PROVIDERS: Internal Medicine; Nurse Practitioner Adult Health; ATTENDING PHYSICIAN Internal Medicine Hematology & Oncology; FAMILY PHYSICIAN Family Medicine
DX: D47.3 Essential (hemorrhagic) thrombocythemia (principal); D50.9 Iron deficiency anemia, unspecified; D75.81 Myelofibrosis; R16.1 Splenomegaly, not elsewhere classified
CPT/HCPCS: 36415; 36430; 80069; 82570; 83036; 83970; 84156; 85025; 86850; 86900; 86901; 86920; P9016